=== PATIENT | female | born 1965 | race Caucasian/White ===

== ENCOUNTER 2018-03-28 15:36 | Emergency (ER) | payer SELFPAY ==
[~2018-03-28] VITALS: Ht 162.6 cm; Wt 56.8 kg
[2018-03-28 15:44] VITALS: Ht 162.6 cm; Wt 56.8 kg
[2018-03-28] MEDS ORDERED: MEDROL DOSE PACK4 MG PO (16:11)
[2018-03-28] MEDS ORDERED: CLEOCIN HCL300 MG PO (16:11)
[2018-03-28 16:43] VITALS: BP 113/72
== END 2018-03-28 16:43 | disposition home or self-care (01) ==
LOC: D.ER 15:36
DX: K08.89 Other specified disorders of teeth and supporting structures (principal); J01.90 Acute sinusitis, unspecified; F17.200 Nicotine dependence, unspecified, uncomplicated

== ENCOUNTER 2019-05-18 21:32 | Emergency (ER) | payer MEDICAID ==
[~2019-05-18] VITALS: Ht 162.6 cm; Wt 54.4 kg
[~2019-05-18 21:32] MED LIST: CLEOCIN HCL300 MG PO; MEDROL DOSE PACK4 MG PO
[2019-05-18 21:43] VITALS: Ht 162.6 cm; Wt 54.4 kg
[2019-05-18 21:56] LABS: BASOPHILS 0.6 % (0-2); EOSINOPHILS 3.1 % (0-7); HEMATOCRIT 42.1 % (36.0-48.0); HEMOGLOBIN 14.9 g/dL (12-16); IMMATURE GRANULOCYTES 0.1 % (0-5); LYMPHOCYTES 30.3 % (15-50); MCH 32.8 pg (26.0-34.0); MCHC 35.4 g/dL (31.0-37.0); MCV 92.7 fL (80.0-100.0); MEAN PLATELET VOLUME 9.7 fL (7.4-10.4); MONOCYTES 11.3 % (2-11); NEUTROPHILS 54.6 % (40-80); PLATELET COUNT 238 10x3/uL (130-400); RBC 4.54 10x6/uL (4.00-5.40); RDW 13.7 % (11.5-14.5); WBC 7.7 10x3/uL (4.8-10.8)
[2019-05-18 22:11] LABS: ALBUMIN 3.4 g/dL (3.4-5.0); ALKALINE PHOSPHATASE 91 U/L (46-116); ALT (SGPT) 28 U/L (10-68); BILIRUBIN - TOTAL 0.19 mg/dL (0.2-1.3); CALC OSMOLALITY 285 mosm/kg (275-300); CALCIUM 8.6 mg/dL (8.5-10.1); CARBON DIOXIDE 25.7 mmol/L (21.0-32.0); CHLORIDE - SERUM 108 mmol/L (98-107); CREATININE - SERUM 0.8 mg/dL (0.6-1.3); GLUCOSE 100 mg/dL (74-106); POTASSIUM - SERUM 3.7 mmol/L (3.5-5.1); PROTEIN - SERUM 7.2 g/dL (6.4-8.2); SODIUM 143 mmol/L (136-145); UREA NITROGEN 16 mg/dL (7-18); eGFR NON AFRICAN AMERICAN 79 mL/min (90-120)
[2019-05-18 22:28] LABS: APPEARANCE CLEAR (CLEAR); BILIRUBIN NEGATIVE (NEGATIVE); COLOR YELLOW (YELLOW); GLUCOSE NEGATIVE (NEGATIVE); KETONE NEGATIVE (NEGATIVE); NITRITE NEGATIVE (NEGATIVE); PROTEIN NEGATIVE (NEGATIVE); SPECIFIC GRAVITY 1.025 (1.005-1.020); UROBILINOGEN NORMAL (NORMAL)
[2019-05-18 22:29] LABS: UDS - AMPHET NEGATIVE QUAL (NEGATIVE); UDS - BARB NEGATIVE QUAL (NEGATIVE); UDS - BENZO NEGATIVE QUAL (NEGATIVE); UDS - COCAINE NEGATIVE QUAL (NEGATIVE); UDS - OPIATE NEGATIVE QUAL (NEGATIVE); UDS - PCP NEGATIVE QUAL (NEGATIVE); UDS - THC NEGATIVE QUAL (NEGATIVE)
[2019-05-18] MEDS ORDERED: BUTALB-APAP-CA1 EACH PO (23:01)
[2019-05-18 23:45] VITALS: BP 123/71
== END 2019-05-18 23:45 | disposition home or self-care (01) ==
LOC: D.ER 21:32
PROVIDERS: Family Medicine
DX: G43.909 Migraine, unspecified, not intractable, without status migrainosus (principal)

== ENCOUNTER 2020-09-06 11:40 | Emergency (ER) | payer OTHER ==
[~2020-09-06] VITALS: Ht 162.6 cm; Wt 50.0 kg
[~2020-09-06 11:40] MED LIST changes: +BUTALB-APAP-CA1 EACH PO
[2020-09-06 11:49] VITALS: BP 150/71; Ht 162.6 cm; Wt 50.0 kg
[2020-09-06 12:04] LABS: BASOPHILS 0.6 % (0-2); HEMATOCRIT 43.7 % (36.0-48.0); HEMOGLOBIN 15.7 g/dL (12-16); IMMATURE GRANULOCYTES 0.2 % (0-5); LYMPHOCYTE ABS# 1.44 10x3/uL (1.18-3.74); LYMPHOCYTES 17.4 % (15-50); MCH 33.1 pg (26.0-34.0); MCHC 35.9 g/dL (31.0-37.0); MCV 92.2 fL (80.0-100.0); MEAN PLATELET VOLUME 10.6 fL (7.4-10.4); MONOCYTES 8.9 % (2-11); NEUTROPHIL ABS# 5.96 10x3/uL (1.56-6.13); NEUTROPHILS 71.9 % (40-80); PLATELET COUNT 237 10x3/uL (130-400); RBC 4.74 10x6/uL (4.00-5.40); RDW 14.1 % (11.5-14.5); WBC 8.3 10x3/uL (4.8-10.8)
[2020-09-06 12:12] LABS: APTT 26.5 SECONDS (22.8-39.4); INR 1.06 (0.85-1.17); PROTIME 12.7 SECONDS (11.6-15.0)
[2020-09-06 12:25] LABS: CALC OSMOLALITY 280 mosm/kg (275-300); CALCIUM 8.8 mg/dL (8.5-10.1); CARBON DIOXIDE 23.9 mmol/L (21.0-32.0); CHLORIDE - SERUM 106 mmol/L (98-107); CREATININE - SERUM 0.8 mg/dL (0.6-1.3); GLUCOSE 103 mg/dL (74-106); POTASSIUM - SERUM 4.2 mmol/L (3.5-5.1); SODIUM 140 mmol/L (136-145); UREA NITROGEN 17 mg/dL (7-18); eGFR NON AFRICAN AMERICAN 79 mL/min (90-120)
[2020-09-06 12:36] LABS: ALBUMIN 3.7 g/dL (3.4-5.0); ALKALINE PHOSPHATASE 93 U/L (30-120); ALT (SGPT) 18 U/L (10-68); BILIRUBIN - TOTAL 0.29 mg/dL (0.2-1.3); CREATINE KINASE 114 UL (21-215); MAGNESIUM - SERUM 2.1 mg/dL (1.8-2.4); PROTEIN - SERUM 7.4 g/dL (6.4-8.2); TROPONIN-I < 0.017 ng/mL (0.000-0.060)
[2020-09-06] MEDS ORDERED: METHOCARBAMOL500 MG PO (13:21)
[2020-09-06] MEDS ORDERED: TORADOL10 MG PO (13:21)
== END 2020-09-06 13:43 | disposition home or self-care (01) ==
LOC: D.ER 11:40
PROVIDERS: Family Medicine
DX: S16.1XXA Strain of muscle, fascia and tendon at neck level, initial encounter (principal); S20.219A Contusion of unspecified front wall of thorax, initial encounter; W20.8XXA Other cause of strike by thrown, projected or falling object, initial encounter; Y93.9 Activity, unspecified; Y92.9 Unspecified place or not applicable; R07.9 Chest pain, unspecified